=== PATIENT | female | born 1965 | race Caucasian/White ===

== ENCOUNTER 2020-08-08 04:40 | Day surgery (SDC) | payer OTHER ==
[2020-08-02 14:06] VITALS: BMI 21.2
[2020-08-08] MEDS ORDERED: LIDOCAINE HCL 2% JELLY 10 ML CARTRIDGE ONE (09:26)
[2020-08-08 10:27] VITALS: TEMP 97.9
[2020-08-08 10:39] VITALS: BP 109/71; PULSE 74
== END 2020-08-08 11:00 | disposition home or self-care (01) ==
LOC: JASU-SURG 04:40
PROVIDERS: ATTEND Internal Medicine Gastroenterology
PROC: 0DBN8ZX Excision of Sigmoid Colon, Via Natural or Artificial Opening Endoscopic, Diagnostic (ICD-10-PCS; principal; 2020-08-08 09:45)
DX: C19 Malignant neoplasm of rectosigmoid junction (principal)
CPT/HCPCS: 88305-TC

== ENCOUNTER 2021-08-23 08:35 | Day surgery (SDC) | payer OTHER ==
[2021-08-17 13:53] VITALS: BMI 19.7
[2021-08-23 12:07] VITALS: TEMP 97.5
[2021-08-23 13:08] VITALS: BP 108/71; PULSE 69
== END 2021-08-23 13:16 | disposition home or self-care (01) ==
LOC: JASU-ENDO 08:35
PROVIDERS: ATTEND Internal Medicine Gastroenterology
PROC: 0DJD8ZZ Inspection of Lower Intestinal Tract, Via Natural or Artificial Opening Endoscopic (ICD-10-PCS; principal; 2021-08-23 12:30)
DX: Z12.11 Encounter for screening for malignant neoplasm of colon (principal); Z86.010 Personal history of colon polyps

== ENCOUNTER 2023-08-28 04:23 | Day surgery (SDC) | payer OTHER ==
[2023-08-25 14:30] VITALS: BMI 19.7
[2023-08-28 08:03] VITALS: RESP 18
[2023-08-28 09:14] VITALS: TEMP 97.8
[2023-08-28 14:19] VITALS: BP 119/68; PULSE 72
== END 2023-08-28 10:05 | disposition home or self-care (01) ==
LOC: JASU-ENDO 04:23
PROVIDERS: ATTEND Internal Medicine Gastroenterology
PROC: 0DJD8ZZ Inspection of Lower Intestinal Tract, Via Natural or Artificial Opening Endoscopic (ICD-10-PCS; principal; 2023-08-28 09:00)
DX: Z12.11 Encounter for screening for malignant neoplasm of colon (principal); Z85.038 Personal history of other malignant neoplasm of large intestine; Z98.0 Intestinal bypass and anastomosis status